=== PATIENT | female | born 1935 | race Caucasian/White ===

== ENCOUNTER → 2023-07-31 | Outpatient (CLI) | payer MEDICARE, SELFPAY ==
--- NOTE | 2023-07-31 12:31 | ECHOD_ITS ---
Reason For Study: CAD, HTN Procedure This was a 2D Doppler, Color Flow transthoracic echocardiogram. Exam performed in department. Left Ventricle Normal LV size. Left ventricular systolic function is normal. The estimated ejection fraction is 60 %. Stage 1 diastolic dysfunction. No regional wall motion abnormalities noted. Right Ventricle Normal RV size. Normal systolic function. Atria Normal left atrium. Normal right atrium. Mitral Valve Normal mitral valve. Tricuspid Valve Normal tricuspid valve. Aortic Valve Mild focal aortic valve calcification. Mild aortic stenosis. Mild (1+) aortic valve insufficiency. Great Vessels Normal aortic root. The pulmonary artery is normal size. Normal inferior vena cava. Pericardium/Pleural No pericardial effusion. MMode/2D Measurements & Calculations LVIDd: 4.6 cm IVSd: 0.87 cm LVOT diam: 2.0 cm LVIDs: 3.6 cm LVPWd: 0.95 cm LVOT area: 3.1 cm2 RVDd: 3.1 cm FS: 21.4 % Ao root diam: 3.7 cm LAV(MOD-bp): 38.7 ml LA A4 area: 13.2 cm2 LA dimension: 3.2 cm LAV(MOD-bp) Indexed: 25.9 ml/m2 LAV(MOD-sp2): 38.0 ml LAV(MOD-sp4): 32.8 ml RA A4 area: 10.2 cm2 TAPSE: 0.97 cm Time Measurements MV dec time: 0.29 sec Doppler Measurements & Calculations MV E max david: 40.4 cm/sec Lat Peak E' David: 8.2 cm/sec Med Peak E' David: 5.4 cm/sec MV A max david: 59.8 cm/sec E/E' lat: 4.9 E/E' med: 7.5 MV E/A: 0.68 MV V2 max: 75.8 cm/sec MV P1/2t max david: 56.2 cm/sec Ao V2 max: 189.2 cm/sec MV max P.3 mmHg MV P1/2t: 99.8 msec Ao max P.3 mmHg MV V2 mean: 37.8 cm/sec MV dec slope: 165.1 cm/sec2 Ao V2 mean: 125.5 cm/sec MV mean P.69 mmHg MVA(P1/2t): 2.2 cm2 Ao mean P.3 mmHg MV V2 VTI: 19.4 cm Ao V2 VTI: 41.2 cm MVA(VTI): 2.6 cm2 AV (velocity ratio): 0.39 BEULAH(I,D): 1.2 cm2 BEULAH(V,D): 1.2 cm2 AI max david: 358.5 cm/sec LV V1 max: 71.0 cm/sec SV(LVOT): 49.7 ml AI max P.5 mmHg LV V1 max P.0 mmHg LV V1 mean P.1 mmHg AI dec slope: 232.0 cm/sec2 LV V1 mean: 49.3 cm/sec AI P1/2t: 452.6 msec LV V1 VTI: 16.0 cm PA V2 max: 74.5 cm/sec ECHO/Echo Complete Interpretation Summary Normal LV size. Left ventricular systolic function is normal. The estimated ejection fraction is 60 %. Stage 1 diastolic dysfunction. Mild (1+) aortic valve insufficiency. Ordering Physician: KANIKA RHODES Performed By: Junior Zuniga RCS
== END | disposition home or self-care (01) ==
PROVIDERS: PCP Family Medicine
DX: I25.10 Atherosclerotic heart disease of native coronary artery without angina pectoris (principal); I10 Essential (primary) hypertension; R06.02 Shortness of breath
CPT/HCPCS: 93306